=== PATIENT | male | born 1980 | race Asian ===

== ENCOUNTER 2018-04-01 10:37 | Emergency (ER) | payer SELFPAY ==
[~2018-04-01] VITALS: Ht 175.3 cm; Wt 70.8 kg
[2018-04-01 11:42] VITALS: BP 117/68
== END 2018-04-01 12:09 | disposition home or self-care (01) ==
LOC: ER 10:40
DX: H66.91 Otitis media, unspecified, right ear (principal); H72.91 Unspecified perforation of tympanic membrane, right ear
CPT/HCPCS: A4606; Z7610